=== PATIENT | male | born 1990 | race Caucasian/White ===

== ENCOUNTER 2017-05-03 16:19 | Emergency (ER) | payer SELFPAY ==
[~2017-05-03] VITALS: Ht 180.3 cm; Wt 80.0 kg
[2017-05-03] MEDS ORDERED: SODIUM CHLORIDE 0.9% 1,000 ML IV ONE (16:38)
[2017-05-03 17:04] LABS: PROTHROMBIN TIME 10.8 sec (9.4-11.6)
[2017-05-03 17:07] LABS: CHLORIDE 106 mEq/L (98-107)
[2017-05-03 17:09] LABS: ETHANOL BLOOD < 10 mg/dL
[2017-05-03 17:11] LABS: BASOPHILS % 0.5 % (0.0-2.0); EOSINOPHILS % 2.7 % (0.0-5.0); HEMOGLOBIN. 13.4 g/dL (14.0-18.0); LYMPHOCYTES % 47.3 % (20.0-50.0); MEAN CORPUSCULAR HEMOGLOBIN 31.2 pg (28.0-32.0); MEAN CORPUSCULAR VOLUME 93.2 fL (80.0-94.0); MONOCYTES % 7.9 % (2.0-8.0); NEUTROPHILS % 41.6 % (40.0-76.0); PLATELET 240 x1000/uL (130-400); RED CELL DISTRIBUTION WIDTH 13.8 % (11.6-14.6)
[2017-05-03 17:15] LABS: TROPONIN I < 0.02 ng/mL (0.00-0.04)
[2017-05-03 17:21] LABS: *AMPHETAMINES SCREEN URINE PRESUMTIVE POSITIVE (NEGATIVE); *BARBITURATES SCREEN URINE NEGATIVE (NEGATIVE); *BENZODIAZEPINES SCREEN URINE NEGATIVE (NEGATIVE); *COCAINE SCREEN URINE NEGATIVE (NEGATIVE); CANNABINOID URINE SCREEN PRESUMTIVE POSITIVE (NEGATIVE); METHADONE URINE SCREEN NEGATIVE (NEGATIVE); OPIATES URINE SCREEN NEGATIVE (NEGATIVE); PHENCYCLIDINE URINE SCREEN NEGATIVE (NEGATIVE)
[2017-05-03 18:23] VITALS: BP 101/60
== END 2017-05-03 18:39 | disposition home or self-care (01) ==
LOC: ER 16:26
DX: R55 Syncope and collapse (principal); F12.10 Cannabis abuse, uncomplicated; F19.10 Other psychoactive substance abuse, uncomplicated; Z91.030 Bee allergy status
CPT/HCPCS: 36415; 70450; 71045; 72125; 80053; 80305; 82962; 84484; 85025; 85610; 93005; 96360; 99285; G0482; J7030; Z7610; A4315

== ENCOUNTER 2022-02-21 09:44 | Emergency (ER) | payer MEDICAID, OTHER ==
[~2022-02-21] VITALS: Ht 172.7 cm; Wt 81.0 kg
[2022-02-21 09:57] VITALS: BP 109/81
== END 2022-02-21 10:20 | disposition home or self-care (01) ==
LOC: ER 09:44
DX: R10.9 Unspecified abdominal pain (principal); Z87.828 Personal history of other (healed) physical injury and trauma; Z65.3 Problems related to other legal circumstances
CPT/HCPCS: 99283